=== PATIENT | female | born 1985 | race Caucasian/White ===

== ENCOUNTER → 2021-09-27 22:01 | Observation (INO) ==
[2021-09-27 21:46] LABS: Basophils % 0.4 %; Eosinophils % 1.4 %; Hematocrit 32.7 % (35.3-44.9); Hemoglobin 11.3 g/dL (11.5-15.4); Immature Granulocytes % 1.2 % (0-4); Lymphocytes % 13.5 %; Mean Corpuscular HGB Conc 34.6 g/dL (31.6-35.5); Mean Corpuscular Hemoglobin 29.4 pg (28.0-33.3); Mean Corpuscular Volume 85.2 fL (83.0-100.0); Mean Platelet Volume 10.8 fL (9.4-12.4); Monocytes % 7.5 %; Neutrophils # 11.1 K/mcL (1.6-8.9); Platelet Count 272 K/mcL (140-400); Red Blood Count 3.84 M/mcL (3.82-4.97); Red Cell Distribution Width 12.5 % (11.5-14.5); White Blood Count 14.6 K/mcL (4.3-11.1)
[2021-09-27 21:47] LABS: Basophils # 0.1 K/mcL (0.0-0.2); Eosinophils # 0.2 K/mcL (0.0-0.6); Monocytes # 1.1 K/mcL (0.0-1.3)
[~2021-09-27 22:01] MED LIST: Ampicillin 2,000 MG in 0.9 % Sodium Chloride Mini Bag 100 ML IVPB ONE; Betamethasone Acet/SodPhos 30 MG/5 ML VIAL IM SCH; Erythromycin Lactobionate 250 MG in 0.9 % Sodium Chloride 100 ML IVPB ONE; Famotidine 20 MG/2 ML VIAL IVP PRN; Magnesium Sulf 20 gm/SW 500mL 20 GM/500 ML IV.SOLN IVC SCH; Magnesium Sulf 20 gm/SW 500mL 4 GM/100 ML BAG IV ONE; Metoclopramide 10 MG/2 ML VIAL IVP PRN; Naloxone 0.4 MG/ML INJ IVP PRN; Ondansetron 4 MG/2 ML VIAL IVP PRN; Ringers Solution, Lactated 1,000 ML IVC SCH
== END | disposition short-term general hospital (02) ==
LOC: 1NENULAB
PROVIDERS: ADMIT Student in an Organized Health Care Education/Training Program; ATTEND Student in an Organized Health Care Education/Training Program